=== PATIENT | female | born 1985 | race Caucasian/White ===

== ENCOUNTER 2016-12-06 11:04 | Emergency (ER) | payer OTHER ==
[~2016-12-06] VITALS: Ht 185.4 cm; Wt 97.6 kg
[2016-12-06 12:42] VITALS: BP 112/78
== END 2016-12-06 12:42 | disposition home or self-care (01) ==
LOC: ED 11:04
DX: H66.92 Otitis media, unspecified, left ear (principal); E07.9 Disorder of thyroid, unspecified; R22.0 Localized swelling, mass and lump, head
CPT/HCPCS: J0696